=== PATIENT | female | born 1930 | race Caucasian/White ===

== ENCOUNTER 2017-05-07 19:08 | Inpatient (IN) | payer MEDICARE, BC ==
[~2017-05-07] VITALS: Ht 170.2 cm; Wt 61.2 kg
--- NOTE | 2017-05-07 19:23 | NUR ---
Patient NIHSS score of 5 at initial evaluation.
--- NOTE | 2017-05-07 19:25 | NUR ---
Patients blood sugar checked w/ result of 76 mg/dl
--- NOTE | 2017-05-07 19:28 | NUR ---
Patient taken to CT via gurney with transporter RN/cytogenetic technician @ 192
--- NOTE | 2017-05-07 19:29 | NUR ---
Peripheral IV placed @1924. Labs drawn @ 1924
--- NOTE | 2017-05-07 19:29 | NUR ---
Call placed to TELESTROKE Hotline, Dr. Noe will be paged.
--- NOTE | 2017-05-07 19:31 | NUR ---
Call received from Dr. Noe, TELENEUROLOGY (TELESTROKE).
--- NOTE | 2017-05-07 19:31 | NUR ---
ER MD on phone with Telestroke MD
--- NOTE | 2017-05-07 19:32 | NUR ---
Per daughter, patient is currently taking Plavix at home. unable to provide medication intake schedule at this time.
[2017-05-07 19:35] LABS: BASOPHILS % (AUTO) 0.5 % (0.0-2.0); EOSINOPHILS # (AUTO) 0.1 K/uL (0.0-0.7); EOSINOPHILS % (AUTO) 1.8 % (0.0-7.0); HEMATOCRIT 43.8 % (31.2-41.9); HEMOGLOBIN 14.3 g/dL (10.9-14.3); LYMPHOCYTES # (AUTO) 2.4 K/uL (20.0-40.0); LYMPHOCYTES % (AUTO) 35.3 % (20.5-51.5); MEAN CORPUSCULAR HEMOGLOBIN 29.6 uug (24.7-32.8); MEAN CORPUSCULAR HGB CONC 33 g/dL (32.3-35.6); MEAN CORPUSCULAR VOLUME 90.6 fL (75.5-95.3); MONOCYTES # (AUTO) 0.4 K/uL (2.0-10.0); MONOCYTES % (AUTO) 5.9 % (0.0-11.0); NEUTROPHILS # (AUTO) 3.9 K/uL (1.8-8.9); NEUTROPHILS % (AUTO) 56.5 % (38.5-71.5); PLATELET COUNT (AUTO) 268 K/uL (179-408); RED BLOOD CELL COUNT(AUTO) 4.84 MIL/uL (3.63-4.92); WHITE BLOOD COUNT (AUTO) 6.9 K/uL (3.8-11.8)
--- NOTE | 2017-05-07 19:36 | NUR ---
Patient returned from CT. VSS. No acute distress.
--- NOTE | 2017-05-07 19:42 | NUR ---
Per Telestroke MD, No TPA is indicated. Patients last known well time is 1430. Per radiology MD, CT was negative.
[2017-05-07 19:52] LABS: CARBON DIOXIDE 29 mmol/L (21-32); CHLORIDE 102 mmol/L (98-107); CREATININE 1.1 mg/dL (0.6-1.3); GLUCOSE 99 mg/dL (74-106); POTASSIUM 3.6 mmol/L (3.5-5.1); UREA NITROGEN, BLOOD 17 mg/dL (7-18)
--- NOTE | 2017-05-07 20:02 | NUR ---
Patient in bed, no acute distress. Patient able to make needs known. Family at bedside. Patient does not have s/s of facial droop. Able to tolerated PO fluids.
[2017-05-07 20:03] LABS: ALANINE AMINOTRANSFERASE 27 U/L (14-59); ALKALINE PHOSPHATASE 53 U/L (50-136); ASPARTATE AMINOTRANSFERASE 23 U/L (15-37); BILIRUBIN,DIRECT 0.1 mg/dL (0.0-0.2); BILIRUBIN,TOTAL 0.4 mg/dL (0.2-1.0); CHOLESTEROL 190 mg/dL (<200); HDL CHOLESTEROL 70 mg/dL (40-60); TRIGLYCERIDES 162 MG/DL (30-150)
--- NOTE | 2017-05-07 21:29 | NUR ---
Patients urine obtained, sent to Lab. Patient in bed, no acute distress noted. All patient needs attended and met.
[2017-05-07 21:37] LABS: *BILIRUBIN,URIN NEGATIVE (NEGATIVE); *BLOOD, URINE Trace-intact (NEGATIVE); *CLARITY,URINE CLEAR (CLEAR); *COLOR,URINE YELLOW (YELLOW); *KETONES,URINE NEGATIVE (NEGATIVE); *PROTEIN,URINE NEGATIVE (NEGATIVE); *UROBILINOGEN,URINE 0.2 E.U./dl (NORMAL); LEUKOCYTE ESTERASE ,URINE TRACE (NEGATIVE); NITRITE, URINE NEGATIVE (NEGATIVE); UGLUCOSE NEGATIVE (NEGATIVE)
--- NOTE | 2017-05-07 21:39 | NUR ---
ER spoke with Dr Viveros. Patient will be admitted to Telemetry. Patient Dx CVA per Dr Viveros.
[2017-05-07 21:43] LABS: MUCUS,URINE FEW /LPF (0-FEW); SQUAMOUS EPITHELIAL CELL,UR MODERATE /HPF (NONE SEEN)
--- NOTE | 2017-05-07 21:45 | NUR ---
Patients Xin conklin . Primary contact for all issues regarding patient.
--- NOTE | 2017-05-07 21:45 | NUR ---
Dr Viveros at patient bedside for patient evaluation.
[2017-05-07 21:46] LABS: *AMPHETAMINE, URINE NEGATIVE (NEGATIVE); *BARBITURATE, URINE NEGATIVE (NEGATIVE); *CANNABINOID, URINE NEGATIVE (NEGATIVE); *COCCAINE, URINE NEGATIVE (NEGATIVE); *OPIATE, URINE NEGATIVE (NEGATIVE); *PHENCYCLIDINE SCREEN,URINE NEGATIVE (NEGATIVE)
--- NOTE | 2017-05-07 21:49 | NUR ---
Report given to Shavonne ESPINOZA on telemetry.
--- NOTE | 2017-05-07 22:20 | NUR ---
Pt. admitted to Telemetry , under care of Dr. Viveros. Belongs List completed
--- NOTE | 2017-05-07 22:40 | NUR ---
Received patient from ER via gurney. Daughter at bedside. No acute distress noted. A&O x 3 but sometimes forgetful. Facial symmetry. No Facial dropping. NO upper and lower extremities drift. Speech is somewhat delayed but clear. patient is able to provide some history but mostly daughter provided history. Patient is able to make needs known. TELE SR. Patient is on O2 2L NC. Neuro check done. Skin check done. Belongings list done. STOKE packet completed. Stroke education provided to patient and daughter. Safety initiated. Call light within reach. Will continue to monitor.
[2017-05-07 22:41] VITALS: BP 163/64
[2017-05-07] MEDS ORDERED: MEMA14CA PO (23:27)
[2017-05-07] MEDS ORDERED: BENA40TA2 PO (23:28)
[2017-05-07] MEDS ORDERED: BLOOD SUGAR DIAGNOSTIC 1 EACH STRIP VI ONE (23:45)
[2017-05-07] MEDS ORDERED: ASPIRIN EC 81 MG TABLET.DR PO ONE (23:45)
[2017-05-08] MEDS ORDERED: ACETAMINOPHEN 325 MG TABLET PO PRN
[2017-05-08] MEDS ORDERED: PREG50CA PO (00:12)
[2017-05-08] MEDS ORDERED: DONE10TA11 PO (00:21)
[2017-05-08] MEDS ORDERED: CLOP75TA33 PO (00:21)
[2017-05-08] MEDS ORDERED: MIRT15TA PO (00:22)
[2017-05-08] MEDS ORDERED: PRAV40TA PO (00:23)
[2017-05-08] MEDS ORDERED: ACET-2154 PO (00:25)
[2017-05-08] MEDS ORDERED: ACET-73 PO (00:25)
[2017-05-08] MEDS ORDERED: AMLO5TAB2 PO (00:27)
[2017-05-08] MEDS: BLOOD SUGAR DIAGNOSTIC 1 EACH STRIP VI SCH ×6 (00:41→21:15)
[2017-05-08 04:00] VITALS: BP 132/57
--- NOTE | 2017-05-08 05:32 | NUR ---
Patient slept intermittently t/o shift. No acute distress noted. Patient remains A&O x 3. Cooperative. Able to make needs known. Slurred speech noted. Frequent neuro checks. Helped patient to the restroom 2 times. Observed gait. Steady. Skin intact. Room kept clutter free. Bed is in low and locked position. All meds given as ordered. All needs met.
[2017-05-08] MEDS ORDERED: AMLO2.5T2 PO (06:16)
[2017-05-08] MEDS ORDERED: AMLO5TAB4 PO (06:16)
[2017-05-08] MEDS ORDERED: TRAM50TA2 PO (06:18)
--- NOTE | 2017-05-08 06:48 | NUR ---
TEXTED DR. WESTBROOK FOR MRI APPROVAL.
[2017-05-08 07:11] LABS: BASOPHILS % (AUTO) 0.7 % (0.0-2.0); EOSINOPHILS # (AUTO) 0.2 K/uL (0.0-0.7); EOSINOPHILS % (AUTO) 2.6 % (0.0-7.0); HEMATOCRIT 41.2 % (31.2-41.9); HEMOGLOBIN 13.4 g/dL (10.9-14.3); LYMPHOCYTES # (AUTO) 2.7 K/uL (20.0-40.0); LYMPHOCYTES % (AUTO) 40.6 % (20.5-51.5); MEAN CORPUSCULAR HEMOGLOBIN 29.5 uug (24.7-32.8); MEAN CORPUSCULAR HGB CONC 33 g/dL (32.3-35.6); MEAN CORPUSCULAR VOLUME 90.3 fL (75.5-95.3); MONOCYTES # (AUTO) 0.5 K/uL (2.0-10.0); MONOCYTES % (AUTO) 6.8 % (0.0-11.0); NEUTROPHILS # (AUTO) 3.3 K/uL (1.8-8.9); NEUTROPHILS % (AUTO) 49.3 % (38.5-71.5); PLATELET COUNT (AUTO) 242 K/uL (179-408); RED BLOOD CELL COUNT(AUTO) 4.57 MIL/uL (3.63-4.92); WHITE BLOOD COUNT (AUTO) 6.7 K/uL (3.8-11.8)
[2017-05-08 07:18] LABS: CARBON DIOXIDE 29 mmol/L (21-32); CHLORIDE 108 mmol/L (98-107); CHOLESTEROL 176 mg/dL (<200); GLUCOSE 121 mg/dL (74-106); HDL CHOLESTEROL 55 mg/dL (40-60); POTASSIUM 3.8 mmol/L (3.5-5.1); TRIGLYCERIDES 236 MG/DL (30-150); UREA NITROGEN, BLOOD 12 mg/dL (7-18)
--- NOTE | 2017-05-08 07:30 | NUR ---
RECEIVED REPORT FROM SUPERVISOR WIRE ROPE FABRICATION NURSE, PATIENT IN BED LAYING FLAT, NO EVIDENCE OF DISTRESS NOTED, NEURO CHECK COMPLETE. BED IN LOW POSITION, SIDE RAILS UP X2, BED ALARM.
[2017-05-08] MEDS: ASPIRIN EC 81 MG TABLET.DR PO SCH (08:45)
[2017-05-08] MEDS: ENOXAPARIN SODIUM 40 MG/0.4 ML DISP.SYRIN SQ SCH (08:48)
[2017-05-08] MEDS: ACETAMINOPHEN ES 500 MG TABLET PO SCH ×2 (10:45→17:20)
[2017-05-08] MEDS ORDERED: Medication Not On Formulary EA (Benazepril Hcl 40 MG) PO SCH (10:45)
[2017-05-08] MEDS ORDERED: MIRTAZAPINE 15 MG TABLET PO SCH (10:45)
[2017-05-08] MEDS ORDERED: AMLODIPINE 5 MG TABLET PO SCH (10:45)
[2017-05-08] MEDS ORDERED: TRAMADOL HCL 50 MG TABLET PO SCH (10:45)
[2017-05-08 11:34] VITALS: BP 145/62
[2017-05-08] MEDS: BENAZEPRIL HCL 20 MG TABLET PO SCH ×2 (11:36→20:54)
--- NOTE | 2017-05-08 11:45 | NUR ---
Patient became confused and combative when she was going to be picked up by ambulance transporters for the MRI. Order to relieve anxiety received by Dr. Randall. 1mg Ativan.
[2017-05-08] MEDS ORDERED: LORAZEPAM 2 MG/1 ML VIAL IV ONE (12:30)
[2017-05-08] MEDS: DONEPEZIL 10 MG TABLET PO SCH (12:37)
[2017-05-08] MEDS: PREGABALIN 50 MG CAPSULE PO SCH ×2 (12:37→17:20)
[2017-05-08] MEDS: CLOPIDOGREL 75 MG TABLET PO SCH (12:38)
--- NOTE | 2017-05-08 13:13 | NUR ---
13:00 patient going for MRI will attempt exam when patient returns
--- NOTE | 2017-05-08 13:45 | NUR ---
Patient left for an MRI after being given ativan and calmed down by daughter.
--- NOTE | 2017-05-08 15:00 | NUR ---
Patient returned from MRI, and notification received that the patient had a left frontal lobe infarct. Notified Dr. Randall and Dr. Alvarez. No new orders received. Addendum: 05/09/17 at 0748 by GREG BLOCK RN Notified Dr. Viveros and Dr. Alvraez, not Dr. Randall
[2017-05-08 15:09] VITALS: BP 152/81
--- NOTE | 2017-05-08 19:16 | NUR ---
Patient has been cooperative with care since return from MRI. Ambulating to bathroom with standby assist. Patient is currently in bed, no evidence of distress noted, bed in low position, side rails up x2. Bed alarm on.
[2017-05-08 20:00] VITALS: BP 145/67
[2017-05-08] MEDS: MEMANTINE HCL 5 MG TABLET PO SCH (20:54)
[2017-05-08] MEDS: MIRTAZAPINE 15 MG TABLET PO SCH (20:54)
[2017-05-08] MEDS: ATORVASTATIN 20 MG TABLET PO SCH (20:54)
[2017-05-08] MEDS: TRAMADOL HCL 50 MG TABLET PO SCH (20:55)
[2017-05-09] VITALS (7 sets, daily range): BP systolic 103–161; BP diastolic 53–78
[2017-05-09] MEDS: BLOOD SUGAR DIAGNOSTIC 1 EACH STRIP VI SCH ×4 (06:47→21:01)
--- NOTE | 2017-05-09 07:15 | NUR ---
Recieved report from retail shift supervisor nurse, patient in bed asleep, no evidence of distress noted, bed in low position, side rails up x2, bed alarm on.
[2017-05-09] MEDS ORDERED: AMLODIPINE 5 MG TABLET PO SCH (09:00)
[2017-05-09] MEDS: AMLODIPINE 5 MG TABLET PO SCH (09:06)
[2017-05-09] MEDS: BENAZEPRIL HCL 20 MG TABLET PO SCH ×2 (09:07→20:58)
[2017-05-09] MEDS: PREGABALIN 50 MG CAPSULE PO SCH ×2 (09:07→17:24)
[2017-05-09] MEDS: ACETAMINOPHEN ES 500 MG TABLET PO SCH ×2 (09:08→17:24)
[2017-05-09] MEDS: DONEPEZIL 10 MG TABLET PO SCH (09:08)
[2017-05-09] MEDS: ASPIRIN EC 81 MG TABLET.DR PO SCH (09:08)
[2017-05-09] MEDS: MEMANTINE HCL 5 MG TABLET PO SCH ×2 (09:08→20:56)
[2017-05-09] MEDS: CLOPIDOGREL 75 MG TABLET PO SCH (09:09)
[2017-05-09] MEDS: ENOXAPARIN SODIUM 40 MG/0.4 ML DISP.SYRIN SQ SCH (09:10)
--- NOTE | 2017-05-09 18:37 | NUR ---
Patient has been cooperative with care, ambulated around the unit with a walker and her shoes, and patient appeared to be more stable. Patient is currently up at the side chair, no evidence of distress noted, all needs met.
--- NOTE | 2017-05-09 19:30 | NUR ---
RECEIVED PT AWAKE, ALERT, ORIENTEDX3. PT IV INTACT AND PATENT. LEFT AC#22. PT SHOWS NO SIGNS OF DISTRESS. BED ALARM ON, CALL LIGHT WITHIN REACH. WILL CONTINUE TO MONITOR.
[2017-05-09] MEDS: ATORVASTATIN 20 MG TABLET PO SCH (20:55)
[2017-05-09] MEDS: MIRTAZAPINE 15 MG TABLET PO SCH (20:56)
[2017-05-09] MEDS: TRAMADOL HCL 50 MG TABLET PO SCH (20:56)
[2017-05-10 00:14] VITALS: BP 132/68
[2017-05-10 04:00] VITALS: BP 120/75
--- NOTE | 2017-05-10 06:30 | NUR ---
PT SLEPT THROUGHOUT THE SHIFT. PT SHOWS NO SIGNS OF ACUTE DISTRESS. PT BLOOD SUGAR WERE 119 AND 74 ON MY SHIFT. PT VS WITHIN NORMAL LIMIT. BED ALARM ON AND CALL LIGHT WITHIN REACH. ALL PRESCRIBED MEDICATION GIVEN AND PT TOLERATED IT WELL. SAFETY AND COMFORT PROVIDED.
[2017-05-10] MEDS: BLOOD SUGAR DIAGNOSTIC 1 EACH STRIP VI SCH (06:31)
--- NOTE | 2017-05-10 07:25 | NUR ---
RECEIVED SHIFT REPORT FROM BINITROTOLUENE OPERATOR NURSE. PT RESTING COMFORTABLY IN BED, NO S/S OF DISTRESS, STABLE CONDITION. NO SIGNS OF NEUROLOGICAL DEFICITS AT THIS TIME. BED IN LOCKED/LOW POSITION, SIDE RAILS UP X2, BED ALARM ON, CALL LIGHT WITHIN REACH.
[2017-05-10] MEDS: AMLODIPINE 5 MG TABLET PO SCH (08:08)
[2017-05-10] MEDS: PREGABALIN 50 MG CAPSULE PO SCH (08:08)
[2017-05-10] MEDS: ASPIRIN EC 81 MG TABLET.DR PO SCH (08:09)
[2017-05-10] MEDS: BENAZEPRIL HCL 20 MG TABLET PO SCH (08:09)
[2017-05-10] MEDS: ACETAMINOPHEN ES 500 MG TABLET PO SCH (08:09)
[2017-05-10] MEDS: DONEPEZIL 10 MG TABLET PO SCH (08:09)
[2017-05-10] MEDS: MEMANTINE HCL 5 MG TABLET PO SCH (08:09)
[2017-05-10] MEDS: CLOPIDOGREL 75 MG TABLET PO SCH (08:10)
[2017-05-10] MEDS: ENOXAPARIN SODIUM 40 MG/0.4 ML DISP.SYRIN SQ SCH (08:13)
[2017-05-10 11:24] VITALS: BP 123/72
--- NOTE | 2017-05-10 12:00 | NUR ---
PT DISCHARGED AT THIS TIME IN STABLE CONDITION, NO S/S OF DISTRESS, VITAL SIGNS STABLE. NO SIGNS OF NEUROLOGICAL DEFICITS. LEFT HOSPITAL IN PRIVATE CAR, ACCOMPANIED BY DAUGHTER (YARED). PT LEFT FLOOR BY WHEELCHAIR. DISCHARGE DOCUMENTATION GIVEN TO PATIENT. STROKE EDUCATION PROVIDED. BELONGINGS CHECKLIST CHECKED AND SIGNED. IV TAKEN OUT, ID BAND TAKEN OFF.
== END 2017-05-10 12:00 | disposition home health service (06) | DRG 65 ==
LOC: ER 19:08 → TELE 22:16
PROVIDERS: ADMIT Internal Medicine; ATTEND Internal Medicine
DX: I63.9 Cerebral infarction, unspecified (principal); G81.91 Hemiplegia, unspecified affecting right dominant side; F03.90 Unspecified dementia, unspecified severity, without behavioral disturbance, psychotic disturbance, mood disturbance, and anxiety; J98.11 Atelectasis; I11.9 Hypertensive heart disease without heart failure; R47.1 Dysarthria and anarthria; R40.2412 Glasgow coma scale score 13-15, at arrival to emergency department; E78.5 Hyperlipidemia, unspecified; I73.00 Raynaud's syndrome without gangrene; Z91.030 Bee allergy status; M54.5 Low back pain; G89.29 Other chronic pain
CPT/HCPCS: 36415; 70030-TC; 70450; 70551; 71045; 80307; 85025; 85730; 87086; 92523; 92610; 93005; 93307; 93880; 97165; A4663; A9150; J1650; J2060

== ENCOUNTER 2018-02-07 10:29 | Inpatient (IN) | payer MEDICARE, BC ==
[~2018-02-07] VITALS: Ht 170.2 cm; Wt 61.7 kg
[~2018-02-07 10:29] MED LIST: ACET-73 PO; AMLO5TAB4 PO; BENA40TA8 PO; CLOP75TA33 PO; DONE10TA11 PO; MEMA14CA PO; MIRT15TA PO; PRAV40TA PO; PREG50CA PO; TRAM50TA2 PO
[2018-02-07] MEDS ORDERED: IV NORMAL SALINE 1000 ML BAG IV ONE (10:45)
[2018-02-07] MEDS ORDERED: PANTOPRAZOLE SODIUM 40 MG VIAL IV ONE (10:45)
[2018-02-07] MEDS ORDERED: PANTOPRAZOLE SODIUM 40 MG VIAL ONE (10:56)
[2018-02-07] MEDS ORDERED: ATOR20TA PO (11:02)
[2018-02-07] MEDS ORDERED: ASPI81TA31 PO (11:02)
[2018-02-07] MEDS ORDERED: CBD PO (11:02)
[2018-02-07] MEDS ORDERED: VIT1TABL5 PO (11:02)
[2018-02-07 11:12] LABS: BASOPHILS % (AUTO) 0.3 % (0.0-2.0); HEMATOCRIT 39.5 % (31.2-41.9); HEMOGLOBIN 13.2 g/dL (10.9-14.3); LYMPHOCYTES % (AUTO) 11.8 % (20.5-51.5); MEAN CORPUSCULAR HEMOGLOBIN 30.9 uug (24.7-32.8); MEAN CORPUSCULAR HGB CONC 33 g/dL (32.3-35.6); MEAN CORPUSCULAR VOLUME 92.7 fL (75.5-95.3); MONOCYTES # (AUTO) 1.6 K/uL (2.0-10.0); MONOCYTES % (AUTO) 9.1 % (0.0-11.0); NEUTROPHILS # (AUTO) 13.5 K/uL (1.8-8.9); NEUTROPHILS % (AUTO) 78.8 % (38.5-71.5); PLATELET COUNT (AUTO) 276 K/uL (179-408); RED BLOOD CELL COUNT(AUTO) 4.26 MIL/uL (3.63-4.92); WHITE BLOOD COUNT (AUTO) 17.2 K/uL (3.8-11.8)
[2018-02-07] MEDS ORDERED: OMEG-153 PO (11:21)
[2018-02-07 11:22] LABS: CARBON DIOXIDE 27 mmol/L (21-32); CHLORIDE 107 mmol/L (98-107); CREATININE 1.2 mg/dL (0.6-1.3); GLUCOSE 105 mg/dL (74-106); POTASSIUM 4.6 mmol/L (3.5-5.1); UREA NITROGEN, BLOOD 23 mg/dL (7-18)
[2018-02-07 11:27] LABS: ALANINE AMINOTRANSFERASE 21 U/L (14-59); ALKALINE PHOSPHATASE 46 U/L (50-136); ASPARTATE AMINOTRANSFERASE 16 U/L (15-37); BILIRUBIN,DIRECT 0.2 mg/dL (0.0-0.2); BILIRUBIN,TOTAL 0.7 mg/dL (0.2-1.0); LIPASE 106 U/L (73-393); TOTAL PROTEIN, SERUM 7.2 g/dL (6.4-8.2)
[2018-02-07 11:41] LABS: THYROID STIMULATING HORMONE 0.299 mIU/mL (0.358-3.740)
--- NOTE | 2018-02-07 12:25 | NUR ---
pt refuses folley cath insertions, gets very angry and agitated, kicking with the attempt to to start to clean her at this point.calm otherwise.
[2018-02-07] MEDS ORDERED: LORAZEPAM 2 MG/1 ML VIAL ONE (12:39)
[2018-02-07] MEDS ORDERED: LORAZEPAM 2 MG/1 ML VIAL IV ONE (12:45)
[2018-02-07] MEDS ORDERED: IV NS 1000 ML 1,000 ML IV ONE (13:15)
--- NOTE | 2018-02-07 13:19 | NUR ---
in and out folley placed. pt tolerated well. pt daughter at bedside.
[2018-02-07 13:21] LABS: *BILIRUBIN,URIN 1+ (NEGATIVE); *BLOOD, URINE NEGATIVE (NEGATIVE); *CLARITY,URINE SLIGHTLY HAZY (CLEAR); *COLOR,URINE DARK YELLOW (YELLOW); *KETONES,URINE TRACE (NEGATIVE); *PROTEIN,URINE 1+ (NEGATIVE); *UROBILINOGEN,URINE 0.2 E.U./dl (NORMAL); LEUKOCYTE ESTERASE ,URINE NEGATIVE (NEGATIVE); NITRITE, URINE NEGATIVE (NEGATIVE); PH,URINE 5.5 (5.0-8.0); UGLUCOSE NEGATIVE (NEGATIVE)
[2018-02-07 13:33] LABS: BACTERIA,URINE NONE SEEN /HPF (NONE SEEN); RBC,URINE 0-3 /HPF (0-3); SQUAMOUS EPITHELIAL CELL,UR MODERATE /HPF (NONE SEEN); WBC,URINE 0-3 /HPF (0-3)
[2018-02-07 13:34] LABS: MUCUS,URINE MODERATE /LPF (0-FEW)
[2018-02-07] MEDS ORDERED: ACETAMINOPHEN 325 MG TABLET PO PRN (14:15)
--- NOTE | 2018-02-07 14:34 | NUR ---
pt transfered to floor in stable condition.
[2018-02-07 15:23] VITALS: BP 130/76
[2018-02-07] MEDS ORDERED: Medication Not On Formulary EA (Benazepril Hcl 40 MG) PO SCH (17:00)
--- NOTE | 2018-02-07 18:35 | NUR ---
PATIENT ADMITTED TO TELEMETRY AT 1440 FROM EMERGENCY DEPARTMENT. PATIENT'S DAUGHTER IS THE MAIN CONTACT. PATIENT HAS BEEN RESTING COMFORTABLY IN BED WITHOUT ANY SIGNS/SYMPTOMS OF RESPIRATORY DISTRESS.PATIENT DENIES ANY PAIN/DISCOMFORT AT THIS TIME. PATIENT HAS NO INTEGUMENTARY IMPAIRMENTS AND SKIN IS INTACT. PATIENT ABLE TO VERBALIZE NEEDS AND CONCERNS. PATIENT REFUSED EVENING MEAL. PATIENT CONTINUES TO NOT HAVE AN APPETITE. PATIENT WAS SEEN BY GI CONSULT, RODRICK ANG. WILL CONTINUE TO MONITOR.
[2018-02-07 19:40] VITALS: BP 130/52
[2018-02-07] MEDS: IV 1/2NS 1000 ML 1,000 ML IV PRN (20:40)
[2018-02-07] MEDS: PANTOPRAZOLE SODIUM 40 MG VIAL IV SCH (20:45)
[2018-02-07] MEDS: PHENYLEPHRINE/SHARK LIVER/CCB 1 EACH SUPP.RECT RC SCH (21:00)
[2018-02-07] MEDS: MEMANTINE HCL 5 MG TABLET PO SCH ×2 (21:02→23:26)
[2018-02-07] MEDS: BENAZEPRIL HCL 20 MG TABLET PO SCH ×2 (21:03→23:26)
[2018-02-08 00:38] VITALS: BP 161/74
[2018-02-08 02:00] VITALS: BP 138/65
[2018-02-08 04:42] VITALS: BP 153/62
[2018-02-08 06:48] LABS: BASOPHILS % (AUTO) 0.3 % (0.0-2.0); EOSINOPHILS # (AUTO) 0.2 K/uL (0.0-0.7); EOSINOPHILS % (AUTO) 2.1 % (0.0-7.0); HEMATOCRIT 38.1 % (31.2-41.9); HEMOGLOBIN 12.5 g/dL (10.9-14.3); LYMPHOCYTES # (AUTO) 2.5 K/uL (20.0-40.0); MEAN CORPUSCULAR HEMOGLOBIN 30.8 uug (24.7-32.8); MEAN CORPUSCULAR HGB CONC 33 g/dL (32.3-35.6); MEAN CORPUSCULAR VOLUME 93.7 fL (75.5-95.3); MONOCYTES # (AUTO) 0.8 K/uL (2.0-10.0); MONOCYTES % (AUTO) 7.1 % (0.0-11.0); NEUTROPHILS # (AUTO) 7.8 K/uL (1.8-8.9); NEUTROPHILS % (AUTO) 68.5 % (38.5-71.5); PLATELET COUNT (AUTO) 232 K/uL (179-408); RED BLOOD CELL COUNT(AUTO) 4.06 MIL/uL (3.63-4.92)
[2018-02-08 06:58] LABS: ALANINE AMINOTRANSFERASE 16 U/L (14-59); ALKALINE PHOSPHATASE 48 U/L (50-136); ASPARTATE AMINOTRANSFERASE 20 U/L (15-37); BILIRUBIN,TOTAL 0.6 mg/dL (0.2-1.0); CARBON DIOXIDE 30 mmol/L (21-32); CHLORIDE 108 mmol/L (98-107); CHOLESTEROL 140 mg/dL (<200); GLUCOSE 80 mg/dL (74-106); HDL CHOLESTEROL 50 mg/dL (40-60); MAGNESIUM 1.7 mg/dL (1.8-2.4); PHOSPHOROUS 2.7 mg/dL (2.5-4.9); POTASSIUM 4.4 mmol/L (3.5-5.1); TOTAL PROTEIN, SERUM 6.3 g/dL (6.4-8.2); TRIGLYCERIDES 119 MG/DL (30-150); UREA NITROGEN, BLOOD 15 mg/dL (7-18)
[2018-02-08 06:59] LABS: THYROID STIMULATING HORMONE 0.953 mIU/mL (0.358-3.740)
[2018-02-08 07:00] LABS: WHITE BLOOD COUNT (AUTO) 11.3 K/uL (3.8-11.8)
[2018-02-08 08:33] LABS: IRON, SERUM 31 ug/dL (50-175)
[2018-02-08] MEDS: LORAZEPAM 2 MG/1 ML VIAL IV PRN (08:36)
[2018-02-08] MEDS: BENAZEPRIL HCL 20 MG TABLET PO SCH ×2 (09:00→20:10)
[2018-02-08] MEDS: OMEGA-3 FATTY ACIDS/FISH OIL CAPSULE PO SCH (09:00)
[2018-02-08] MEDS ORDERED: MEMANTINE HCL 21 MG PO SCH (09:00)
[2018-02-08] MEDS: AMLODIPINE 5 MG TABLET PO SCH (09:00)
[2018-02-08] MEDS: PANTOPRAZOLE SODIUM 40 MG VIAL IV SCH ×2 (09:00→20:07)
[2018-02-08] MEDS ORDERED: Medication Not On Formulary EA (Salmon Oil/Omega-3 Fatty Acids (Fish Oil 500 Mg Softgel) PO SCH (09:00)
[2018-02-08 09:22] LABS: *OCCULT BLOOD STOOL POSITIVE (NEGATIVE)
[2018-02-08] MEDS: MEMANTINE HCL 10 MG TABLET PO SCH (09:34)
--- NOTE | 2018-02-08 10:09 | NUR ---
PATIENT REFUSED MEDICATIONS FOR BLOOD PRESSURE. PATIENT'S BLOOD PRESSURE WAS 140/70. WOULD REORIENT PATIENT REPETITIVELY ABOUT PURPOSE OF MEDICATION ADMINISTRATION. ALSO, AFTER ATTEMPTING SEVERAL TIMES AND PROVING EDUCATION OF RISKS AND BENEFITS, PATIENT STILL REFUSED THE MEDICATION AND WILL SPIT IT OUT. WILL CONTINUE TO MONITOR
[2018-02-08] MEDS ORDERED: MAGNESIUM SULFATE/D5W 100 ML IV SCH (10:30)
[2018-02-08 11:40] VITALS: BP 146/71
[2018-02-08 15:43] VITALS: BP 150/73
--- NOTE | 2018-02-08 18:51 | NUR ---
PATIENT IS IN RESTING IN BED COMFORTABLY. PATIENT DENIES ANY PAIN OR DISCOMFORT AT THIS TIME. PATIENT WAS ABLE TOLERATE FOOD WHEN DAUGHTER IS PRESENT. CAREGIVER CAME TODAY AT 1300 AND WAS MONITORING TH PATIENT AT BEDSIDE AND ASSISTING WITH FOOD INTAKE. PATIENT REMAINS CALM. PATIENT IS CONFUSED INTERMITTENTLY AND NEEDS REDIRECTING. PATIENT BECOMES AGGRESSIVE INTERMITTENTLY AND WILL BECOME COMBATIVE. REORIENTING AND RELAXATION TECHNIQUES HAVE BEEN TAUGHT TO PATIENT AND CAREGIVER. PATIENT WAS ABLE TO AMBULATE TODAY IN THE MORNING TO USE THE RESTROOM. URINE WAS YELLOW AND CLEAR WITH NO SIGNS/SYMPTOMS OF UTI. PATIENT STOOL WAS DARK AND BURGUNDY. BLOOD OCCULT WAS SENT TO LAB, AND WILL FOLLOW UP. PATIENT VITAL SIGNS ARE WITHIN NORMAL LIMITS. FALL PRECAUTIONS HAVE BEEN IMPLEMENTED. WILL CONTINUE TO MONITOR CLOSELY.
[2018-02-08] MEDS: IV 1/2NS 1000 ML 1,000 ML IV PRN (19:11)
[2018-02-08 19:51] VITALS: BP 146/69
[2018-02-08] MEDS: MEMANTINE HCL 5 MG TABLET PO SCH (20:10)
[2018-02-08] MEDS: ATORVASTATIN 20 MG TABLET PO SCH (20:10)
[2018-02-08] MEDS: PHENYLEPHRINE/SHARK LIVER/CCB 1 EACH SUPP.RECT RC SCH (20:11)
[2018-02-09] VITALS: BP 129/54
[2018-02-09 04:00] VITALS: BP 138/69
[2018-02-09 06:39] LABS: BASOPHILS % (AUTO) 0.4 % (0.0-2.0); EOSINOPHILS # (AUTO) 0.2 K/uL (0.0-0.7); EOSINOPHILS % (AUTO) 3.4 % (0.0-7.0); HEMATOCRIT 35.8 % (31.2-41.9); LYMPHOCYTES # (AUTO) 1.5 K/uL (20.0-40.0); LYMPHOCYTES % (AUTO) 20.9 % (20.5-51.5); MEAN CORPUSCULAR HEMOGLOBIN 31.1 uug (24.7-32.8); MEAN CORPUSCULAR HGB CONC 34 g/dL (32.3-35.6); MEAN CORPUSCULAR VOLUME 92.4 fL (75.5-95.3); MONOCYTES # (AUTO) 0.6 K/uL (2.0-10.0); MONOCYTES % (AUTO) 8.8 % (0.0-11.0); NEUTROPHILS # (AUTO) 4.7 K/uL (1.8-8.9); NEUTROPHILS % (AUTO) 66.5 % (38.5-71.5); PLATELET COUNT (AUTO) 226 K/uL (179-408); RED BLOOD CELL COUNT(AUTO) 3.88 MIL/uL (3.63-4.92)
[2018-02-09 06:51] LABS: CARBON DIOXIDE 29 mmol/L (21-32); CHLORIDE 105 mmol/L (98-107); CREATININE 0.9 mg/dL (0.6-1.3); GLUCOSE 77 mg/dL (74-106); MAGNESIUM 1.7 mg/dL (1.8-2.4); PHOSPHOROUS 2.8 mg/dL (2.5-4.9); POTASSIUM 3.1 mmol/L (3.5-5.1); UREA NITROGEN, BLOOD 10 mg/dL (7-18)
--- NOTE | 2018-02-09 07:45 | NUR ---
resting well in bed no sob or pain on fall /aspiration precaution BED ALARM ON AND CALL DWYER IN REACH CONTINUE ON IVF
[2018-02-09 08:00] VITALS: BP 130/51
[2018-02-09] MEDS: AMLODIPINE 5 MG TABLET PO SCH (08:29)
[2018-02-09] MEDS: BENAZEPRIL HCL 20 MG TABLET PO SCH ×2 (08:29→21:00)
[2018-02-09] MEDS: OMEGA-3 FATTY ACIDS/FISH OIL CAPSULE PO SCH (08:29)
[2018-02-09] MEDS: MEMANTINE HCL 10 MG TABLET PO SCH (08:29)
[2018-02-09] MEDS: PANTOPRAZOLE SODIUM 40 MG VIAL IV SCH ×2 (08:31→20:20)
--- NOTE | 2018-02-09 09:30 | NUR ---
OOB UP WITH PHYSICAL THERAPY ,GEN WEAK NO SOB OR PAIN
[2018-02-09 11:30] VITALS: BP 154/70
[2018-02-09] MEDS ORDERED: POTASSIUM CHLORIDE 50 ML IV SCH (12:45)
[2018-02-09] MEDS ORDERED: MAGNESIUM SULFATE 2 GM in IV DEXTROSE 5% 100 ML IV ONE (12:45)
--- NOTE | 2018-02-09 13:00 | NUR ---
STOOL FOR C_DIFF WAS POSITIVE PUT ON CONTACT ISOLATION AND DR UMU SCHMID RELIGION PROFESSOR WAS CALL MESSAGE LEFT
--- NOTE | 2018-02-09 15:00 | NUR ---
UMU MEYER MACHINE BRUSH MAKER WAS CALL AGAIN AND MESSAGE LEFT REGARDING NO RETURN CALL OR ORDER MEDICATION
[2018-02-09] MEDS: POTASSIUM CHLORIDE 10 MEQ in IV DEXTROSE 5% 50 ML IV SCH ×4 (15:03→19:49)
[2018-02-09] MEDS: IV 1/2NS 1000 ML 1,000 ML IV PRN (15:03)
[2018-02-09 16:00] VITALS: BP 140/73
[2018-02-09] MEDS: DONEPEZIL 10 MG TABLET PO SCH (16:22)
--- NOTE | 2018-02-09 16:30 | NUR ---
HANS ASHBY WAS HERE NEW ORDER ANTIBIOTICS VANCOMYCIN PO
--- NOTE | 2018-02-09 18:30 | NUR ---
REFUSED TO EAT DINNER WILL TRY TO FEED AGAIN LATER PO MED GIVEN ORDER
[2018-02-09] MEDS: VANCOMYCIN FOR PO/GT/NG USE PO SCH (18:34)
--- NOTE | 2018-02-09 18:45 | NUR ---
STABLE HEMODYNAMIC STATUS ,PAIN UNDER CONTROL NO ACUTE DISTRESS ON FALL /ASPIRATION PRECAUTION BED ALArm on and call light in [facility]
[2018-02-09] MEDS: LORAZEPAM 2 MG/1 ML VIAL IV PRN (20:20)
[2018-02-09] MEDS: ATORVASTATIN 20 MG TABLET PO SCH ×2 (20:21→21:00)
[2018-02-09] MEDS: MEMANTINE HCL 5 MG TABLET PO SCH ×2 (20:21→21:00)
[2018-02-09] MEDS: PHENYLEPHRINE/SHARK LIVER/CCB 1 EACH SUPP.RECT RC SCH (21:00)
[2018-02-10] MEDS: VANCOMYCIN FOR PO/GT/NG USE PO SCH ×7 (00:14→18:00)
--- NOTE | 2018-02-10 07:20 | NUR ---
RECEIVED PATIENT ON BED AWAKE, AAOX1 WITH BOUTS OF CONFUSION. NO ACUTE DISTRESS NOTED. ON CONTACT ISOLATION FOR C.DIFF. IV ACCESS ON RFA #22 INTACT AND PATENT. NO COMPLAINTS OF PAIN AND DISCOMFORT AT THIS TIME. COMFORT MEASURES PROVIDED DENILSON LIGHT WITHIN REACH, WILL CONTINUE TO MONITOR CLOSELY.
[2018-02-10] MEDS: PANTOPRAZOLE SODIUM 40 MG VIAL IV SCH ×2 (08:59→20:17)
[2018-02-10] MEDS: DONEPEZIL 10 MG TABLET PO SCH (08:59)
[2018-02-10] MEDS: BENAZEPRIL HCL 20 MG TABLET PO SCH ×2 (09:00→20:12)
[2018-02-10] MEDS: OMEGA-3 FATTY ACIDS/FISH OIL CAPSULE PO SCH (09:00)
[2018-02-10] MEDS: MEMANTINE HCL 10 MG TABLET PO SCH (09:00)
[2018-02-10] MEDS: AMLODIPINE 5 MG TABLET PO SCH (09:00)
[2018-02-10 09:13] LABS: BASOPHILS # (AUTO) 0.1 K/uL (0.0-8.0); BASOPHILS % (AUTO) 0.7 % (0.0-2.0); EOSINOPHILS # (AUTO) 0.2 K/uL (0.0-0.7); EOSINOPHILS % (AUTO) 2.6 % (0.0-7.0); HEMATOCRIT 39.8 % (31.2-41.9); HEMOGLOBIN 13.2 g/dL (10.9-14.3); LYMPHOCYTES # (AUTO) 1.4 K/uL (20.0-40.0); LYMPHOCYTES % (AUTO) 18.5 % (20.5-51.5); MEAN CORPUSCULAR HEMOGLOBIN 30.5 uug (24.7-32.8); MEAN CORPUSCULAR HGB CONC 33 g/dL (32.3-35.6); MEAN CORPUSCULAR VOLUME 91.8 fL (75.5-95.3); MONOCYTES # (AUTO) 0.6 K/uL (2.0-10.0); MONOCYTES % (AUTO) 8.5 % (0.0-11.0); NEUTROPHILS # (AUTO) 5.3 K/uL (1.8-8.9); NEUTROPHILS % (AUTO) 69.7 % (38.5-71.5); PLATELET COUNT (AUTO) 281 K/uL (179-408); RED BLOOD CELL COUNT(AUTO) 4.34 MIL/uL (3.63-4.92); WHITE BLOOD COUNT (AUTO) 7.6 K/uL (3.8-11.8)
[2018-02-10 09:27] LABS: CARBON DIOXIDE 28 mmol/L (21-32); CHLORIDE 106 mmol/L (98-107); CREATININE 0.8 mg/dL (0.6-1.3); GLUCOSE 83 mg/dL (74-106); MAGNESIUM 2.1 mg/dL (1.8-2.4); PHOSPHOROUS 2.8 mg/dL (2.5-4.9); POTASSIUM 3.6 mmol/L (3.5-5.1); UREA NITROGEN, BLOOD 9 mg/dL (7-18)
[2018-02-10 11:18] VITALS: BP 176/87
--- NOTE | 2018-02-10 11:40 | NUR ---
TRIED TO ADMINISTER VANCO PO TO PATIENT. PATIENT SPIT MEDICATION OUT AND STARTED HITTING RN. TRIED TO REDIRECT PATIENT AND CALM THEM DOWN. WILL CONTINUE TO MONITOR CLOSELY.
[2018-02-10] MEDS: ONDANSETRON 4 MG/2 ML VIAL IV PRN (12:27)
[2018-02-10 15:04] VITALS: BP 127/76
[2018-02-10] MEDS: IV 1/2NS 1000 ML 1,000 ML IV PRN (18:12)
--- NOTE | 2018-02-10 18:41 | NUR ---
PATIENT STABLE THROUGHOUT SHIFT STILL ON CONTACT ISOLATION FOR C.DIFF. PATIENT CAN BE UNCOOPERATIVE WITH CARE AND NONCOMPLIANT WITH MEDICATION. REFUSED 1800 DOSE OF VANCO PO. IV ACCESS INTACT AND PATENT. IVF INFUSING WELL. LOOSE BM X1. ALL NEEDS ATTENDED AND ANTICIPATED. CALL LIGHT WITHIN REACH.
--- NOTE | 2018-02-10 19:50 | NUR ---
PATIENT IS AWAKE IN BED, AAOX1 WITH CONFUSION, NO S/S OF PAIN OR ACUTE DISTRESS ON ASSESSMENT. SAFETY MEASURES IN PLACE, BED ALARM REGISTRATION REPRESENTATIVE LIGHT WITHIN PATIENT'S REACH
[2018-02-10 20:00] VITALS: BP 147/90
[2018-02-10] MEDS: ATORVASTATIN 20 MG TABLET PO SCH (20:12)
[2018-02-10] MEDS: MEMANTINE HCL 5 MG TABLET PO SCH (20:12)
[2018-02-10] MEDS: PHENYLEPHRINE/SHARK LIVER/CCB 1 EACH SUPP.RECT RC SCH (20:27)
[2018-02-11] MEDS: VANCOMYCIN FOR PO/GT/NG USE PO SCH ×5 (00:23→23:27)
[2018-02-11 04:00] VITALS: BP 142/70
--- NOTE | 2018-02-11 06:25 | NUR ---
PATIENT SLEPT WELL MOST OF THE NIGHT CONTINUES TO HAVE EPISODES OF CONFUSION, ABLE TO REDIRECT PATIENT NO S/S PAIN OR ACUTE DISTRESS AT PRESENT. SAFETY MEASURES MAINTAINED AT ALL TIMES
--- NOTE | 2018-02-11 07:30 | NUR ---
RECEIVED PATIENT ASLEEP, AAOX1 WITH BOUTS OF CONFUSION. NO ACUTE DISTRESS NOTED. ON CONTACT ISOLATION FOR C.DIFF. IV ACCESS ON RIGHT HAND#22 INTACT AND PATENT RUNNING 1/2 NS @ 75CC/HR INFUSING WELL. NO BM PER IT SERVICE CONTINUITY SUPERVISOR NO COMPLAINTS OF PAIN AND DISCOMFORT AT THIS TIME. COMFORT MEASURES PROVIDED DENILSON LIGHT WITHIN REACH, WILL CONTINUE TO MONITOR CLOSELY.
[2018-02-11] MEDS: PANTOPRAZOLE SODIUM 40 MG VIAL IV SCH (08:36)
[2018-02-11] MEDS: DONEPEZIL 10 MG TABLET PO SCH (08:38)
[2018-02-11] MEDS: BENAZEPRIL HCL 20 MG TABLET PO SCH ×2 (08:38→20:07)
[2018-02-11] MEDS: AMLODIPINE 5 MG TABLET PO SCH (08:38)
[2018-02-11] MEDS: MEMANTINE HCL 10 MG TABLET PO SCH (08:38)
[2018-02-11] MEDS: OMEGA-3 FATTY ACIDS/FISH OIL CAPSULE PO SCH (08:47)
[2018-02-11 11:16] VITALS: BP 160/72
[2018-02-11] MEDS: ONDANSETRON 4 MG/2 ML VIAL IV PRN (12:17)
[2018-02-11 15:17] VITALS: BP 159/83
[2018-02-11] MEDS: PANTOPRAZOLE SODIUM 40 MG TABLET.DR PO SCH (17:20)
[2018-02-11] MEDS: IV 1/2NS 1000 ML 1,000 ML IV PRN (17:27)
--- NOTE | 2018-02-11 19:20 | NUR ---
PATIENT STABLE THROUGHOUT SHIFT STILL ON CONTACT ISOLATION FOR C.DIFF. IV ACCESS INTACT AND PATENT. IVF INFUSING WELL. ALL NEEDS ATTENDED AND ANTICIPATED. CALL LIGHT WITHIN REACH.
--- NOTE | 2018-02-11 19:40 | NUR ---
Received pt sitting up in bed with legs elevated. Pt AxO x2 to name and . Reorientation and redirection is needed. IV intact and patent. Pt shows no s/s of acute distress. Denies pain, discomfort, SOB, or severe headache. Contact precautions for C dif implemented. Safety measures maintained, bed alarm on, side rails x2, call light within reach. Will continue to monitor.
[2018-02-11 20:01] VITALS: BP 168/74
[2018-02-11] MEDS: ATORVASTATIN 20 MG TABLET PO SCH (20:07)
[2018-02-11] MEDS: MEMANTINE HCL 5 MG TABLET PO SCH (20:07)
[2018-02-11] MEDS: PHENYLEPHRINE/SHARK LIVER/CCB 1 EACH SUPP.RECT RC SCH (21:00)
[2018-02-12 04:08] VITALS: BP 148/61
[2018-02-12] MEDS: VANCOMYCIN FOR PO/GT/NG USE PO SCH ×2 (05:39→12:14)
[2018-02-12] MEDS: PANTOPRAZOLE SODIUM 40 MG TABLET.DR PO SCH (06:37)
--- NOTE | 2018-02-12 06:40 | NUR ---
Pt slept well t/o the night. Easily arousable during initial rounds. Pt had episodes of confusion, reorientation and redirection given. Pt shows no s/s of acute distress at this time. Pt complains of no pain, SOB or severe headache. IV intact and patent with no signs of swelling or redness. Continuous IV fluids noted. Safety measures and contact precautions maintained at all times. Call light within reach. Will endorse accordingly.
--- NOTE | 2018-02-12 07:00 | NUR ---
RECEIVED PATIENT ON BED AWAKE, AAOX1 WITH BOUTS OF CONFUSION. NO ACUTE DISTRESS NOTED. ON CONTACT ISOLATION FOR C.DIFF. IV ACCESS ON RHAND #22 INTACT AND PATENT RUNNING 0.45%NS @70 CC/HR INFUSING WELL. NO COMPLAINTS OF PAIN AND DISCOMFORT AT THIS TIME. COMFORT MEASURES PROVIDED DENILSON LIGHT WITHIN REACH, WILL CONTINUE TO MONITOR CLOSELY.
[2018-02-12] MEDS: OMEGA-3 FATTY ACIDS/FISH OIL CAPSULE PO SCH (09:00)
[2018-02-12] MEDS: MEMANTINE HCL 10 MG TABLET PO SCH (09:00)
[2018-02-12] MEDS: DONEPEZIL 10 MG TABLET PO SCH (09:00)
[2018-02-12] MEDS: AMLODIPINE 5 MG TABLET PO SCH (09:00)
[2018-02-12] MEDS: BENAZEPRIL HCL 20 MG TABLET PO SCH (09:00)
[2018-02-12] MEDS: IV 1/2NS 1000 ML 1,000 ML IV PRN (09:09)
--- NOTE | 2018-02-12 11:20 | NUR ---
PATIENT W/ EPISODE OF AGITATION AND BEING COMBATIVE. PATIENT WAS THROWING THINGS AND TRYING TO GRAB, HIT, AND KICK NURSES. YELLING/SCREAMING ALSO NOTED. RN AT BEDSIDE MAINTAINING SAFE ENVIRONMENT.
--- NOTE | 2018-02-12 11:30 | NUR ---
INFORMED UMU ASHBY OF PATIENT'S BEHAVIOR, RECEIVED ORDERS FOR ATIVAN 1MG IM ONCE ORDERS NOTED AND CARRIED OUT.
[2018-02-12] MEDS ORDERED: LORAZEPAM 2 MG/1 ML VIAL IV ONE (11:45)
--- NOTE | 2018-02-12 11:50 | NUR ---
PATIENT STILL COMBATIVE AND AGITATED. ATIVAN 1MG IM ONCE GIVEN ON LEFT DELTOID, WILL CONTINUE TO MONITOR CLOSELY.
--- NOTE | 2018-02-12 15:58 | NUR ---
PATIENT DISCHARGED IN STABLE CONDITION TO HOME WITH HOME HEALTH. DISCHARGE PAPERS AND INSTRUCTIONS GIVEN AND EXPLAINED TO PATIENT'S DAUGHTER ANTONIA. PRESCRIPTION SCRIPT WAS GIVEN. BELONGINGS LIST COUNTED AND COMPLETED. IV ACCESS REMOVED, WELL TOLERATED DISCHARGE PICTURES TAKEN AND PLACED IN CHART. PATIENT LEFT HOSPITAL ACCOMPANIED BY ANTONIA DAUGHTER VIA PRIVATE CAR.
== END 2018-02-12 15:25 | disposition home health service (06) | DRG 371 ==
LOC: ER 10:29 → TELE 14:24 → MED 02-09 14:40
PROVIDERS: ADMIT Internal Medicine; ATTEND Nurse Practitioner Acute Care
DX: A04.72 Enterocolitis due to Clostridium difficile, not specified as recurrent (principal); G92 Toxic encephalopathy; N17.0 Acute kidney failure with tubular necrosis; I69.354 Hemiplegia and hemiparesis following cerebral infarction affecting left non-dominant side; E44.1 Mild protein-calorie malnutrition; I69.322 Dysarthria following cerebral infarction; Z79.82 Long term (current) use of aspirin; Z66 Do not resuscitate; E86.0 Dehydration; E05.90 Thyrotoxicosis, unspecified without thyrotoxic crisis or storm; E78.5 Hyperlipidemia, unspecified; K57.90 Diverticulosis of intestine, part unspecified, without perforation or abscess without bleeding; G89.29 Other chronic pain; M54.5 Low back pain; I73.00 Raynaud's syndrome without gangrene; Z90.710 Acquired absence of both cervix and uterus; E88.09 Other disorders of plasma-protein metabolism, not elsewhere classified; I10 Essential (primary) hypertension; F03.90 Unspecified dementia, unspecified severity, without behavioral disturbance, psychotic disturbance, mood disturbance, and anxiety; E83.42 Hypomagnesemia; D72.829 Elevated white blood cell count, unspecified; Z68.21 Body mass index [BMI] 21.0-21.9, adult; Z98.49 Cataract extraction status, unspecified eye; E87.6 Hypokalemia; E67.8 Other specified hyperalimentation; K64.9 Unspecified hemorrhoids
CPT/HCPCS: 36415; 70030-TC; 70450; 71045; 83550; 83690; 83735; 84100; 84443; 84481; 85025; 85730; 86625; 86850; 86900; 86901; 87040; 87046; 87086; 89055; 93005; 93307; 97110; 97116; 97530; A4663; C1758; C9113; G0378; J2060; J2405; J3370; J3475; J3480; J3490; J7030; J7060